=== PATIENT | male | born 1980 | race Caucasian/White ===

== ENCOUNTER 2017-01-16 21:07 | Emergency (ER) | payer MEDICARE ==
[2017-01-16 22:34] LABS: BASO % 0.3 % (0.2-1.2); EOS # 0.2 10_X3_uL (0.0-0.5); EOS % 1.3 % (0.8-7.0); GRAN # 8.2 10_X3_uL (1.8-5.4); GRAN % 69.6 % (34.0-67.9); HEMATOCRIT 46.3 % (40-51); HEMOGLOBIN 16.1 g/dL (13.7-17.5); LYMPH # 2.7 10_X3_uL (1.3-3.6); LYMPH % 23.1 % (21.8-53.1); MEAN CORPUSCULAR HEMOGLOBIN 28.9 pg (27.0-33.0); MEAN CORPUSCULAR HGB CONC 34.8 g/dL (32.0-36.0); MEAN PLATELET VOLUME 9.2 fl (7.5-11.5); MONO # 0.7 10_X3_uL (0.3-0.8); MONO % 5.7 % (5.3-12.2); PLATELET COUNT 256 x10_3/uL (163-337); RED BLOOD COUNT 5.58 x10_6/uL (4.6-6.1); RED CELL DISTRIBUTION WIDTH 13.7 % (11.6-14.4); WHITE BLOOD COUNT 11.8 x10_3/uL (4.2-9.1)
[2017-01-16 22:47] LABS: ALBUMIN 4.6 gm/dL (3.4-5.0); ALKALINE PHOSPHATASE 85 U/L (50-136); ALT/SGPT 18 U/L (7.53-40.17); AST/SGOT 20 U/L (6.66-35.34); BILIRUBIN,TOTAL 0.27 mg/dL (0.0-1.0); BLOOD UREA NITROGEN 10 mg/dL (7-18); CALCIUM 9.1 mg/dL (8.7-10.7); CARBON DIOXIDE 28 mmol/L (21-32); CREATINE KINASE 123 U/L (35-232); CREATININE 0.8 mg/dL (0.6-1.3); GLUCOSE,RANDOM 68 mg/dL (70-99); SODIUM 142 mmol/L (136-145); TOTAL PROTEIN 7.6 gm/dL (6.4-8.2)
== END 2017-01-17 02:18 | disposition home or self-care (01) ==
LOC: ER 21:07
PROVIDERS: Emergency Medicine
DX: K59.00 Constipation, unspecified (principal); R10.9 Unspecified abdominal pain; I51.9 Heart disease, unspecified; K21.9 Gastro-esophageal reflux disease without esophagitis; Z86.14 Personal history of Methicillin resistant Staphylococcus aureus infection; F41.9 Anxiety disorder, unspecified; F17.220 Nicotine dependence, chewing tobacco, uncomplicated; Z79.899 Other long term (current) drug therapy
CPT/HCPCS: 36415; 71250; 80053; 82550; 82553; 85025; 93005; 96372; 99284; 99284-25

== ENCOUNTER 2017-03-26 23:26 | Emergency (ER) | payer MEDICARE ==
[2017-03-26 23:45] LABS: BASO # 0.1 10_X3_uL (0.0-0.1); BASO % 0.5 % (0.2-1.2); EOS # 0.3 10_X3_uL (0.0-0.5); EOS % 2.1 % (0.8-7.0); GRAN # 8.8 10_X3_uL (1.8-5.4); HEMATOCRIT 40.4 % (40-51); HEMOGLOBIN 14.4 g/dL (13.7-17.5); LYMPH # 2.8 10_X3_uL (1.3-3.6); MEAN CORPUSCULAR HEMOGLOBIN 29.6 pg (27.0-33.0); MEAN CORPUSCULAR HGB CONC 35.6 g/dL (32.0-36.0); MEAN PLATELET VOLUME 9.1 fl (7.5-11.5); MONO # 0.7 10_X3_uL (0.3-0.8); MONO % 5.4 % (5.3-12.2); PLATELET COUNT 236 x10_3/uL (163-337); RED BLOOD COUNT 4.87 x10_6/uL (4.6-6.1); RED CELL DISTRIBUTION WIDTH 13.4 % (11.6-14.4); WHITE BLOOD COUNT 12.6 x10_3/uL (4.2-9.1)
[2017-03-26 23:57] LABS: ALBUMIN 4.3 gm/dL (3.4-5.0); ALKALINE PHOSPHATASE 71 U/L (50-136); ALT/SGPT 28 U/L (7.53-40.17); AMYLASE 51 U/L (15.62-74.58); AST/SGOT 27 U/L (6.66-35.34); BLOOD UREA NITROGEN 12 mg/dL (7-18); CALCIUM 8.7 mg/dL (8.7-10.7); CARBON DIOXIDE 25 mmol/L (21-32); CREATININE 0.9 mg/dL (0.6-1.3); GLUCOSE,RANDOM 86 mg/dL (70-99); LIPASE 54 U/L (6.75-60.75); POTASSIUM 3.8 mmol/L (3.5-5.1); SODIUM 141 mmol/L (136-145); TOTAL PROTEIN 6.9 gm/dL (6.4-8.2)
== END 2017-03-27 02:18 | disposition home or self-care (01) ==
LOC: ER 23:26
PROVIDERS: General Practice
DX: R10.13 Epigastric pain (principal); K59.00 Constipation, unspecified; R11.0 Nausea; J44.9 Chronic obstructive pulmonary disease, unspecified; I10 Essential (primary) hypertension; Z95.5 Presence of coronary angioplasty implant and graft; K21.9 Gastro-esophageal reflux disease without esophagitis; F17.210 Nicotine dependence, cigarettes, uncomplicated; Z79.899 Other long term (current) drug therapy
CPT/HCPCS: 36415; 71260; 80053; 82150; 83690; 85025; 99070; 99284; 99284-25; J7040; Q9967